=== PATIENT | female | born 1940 | race Caucasian/White ===

== ENCOUNTER 2018-06-18 09:04 | Inpatient (IN) | payer MEDICARE ==
[~2018-06-18] VITALS: Ht 167.6 cm; Wt 127.3 kg
[~2018-06-18 09:04] MED LIST: AMLO2.5T2 PO; CALC600T12 PO; FERR134T2 PO; INDA2.5T5 PO; LOSA25TA96 PO; MAGN400C PO; OTC POTASSIUM PO; PRAS25CA7 PO; PYRI50TA13 PO; THIA250T6 PO; TRAM50TA2 PO
[2018-06-18] MEDS ORDERED: normal saline 1000ML IV soln IVB ONE (09:10)
--- NOTE | 2018-06-18 09:19 | NUR ---
PT TO CT, GRANDDAUGHTER AT BEDSIDE AND STATES THAT PT HAD THE SAME SYMPTOMS LAST WEEK. PROVIDER NOTIFIED
[2018-06-18 09:33] LABS: BASOPHILS % (AUTO) 0.3 % (0-1); EOSINOPHILS # (AUTO) 0.1 X10'3 (0-0.9); EOSINOPHILS % (AUTO) 1.8 % (0-6); HEMATOCRIT 40.4 % (35.0-45.0); HEMOGLOBIN 13.3 g/dl (12.0-16.0); LYMPHOCYTES # (AUTO) 1.4 X10'3 (1.1-4.8); LYMPHOCYTES % (AUTO) 18.3 % (21-51); MEAN CORPUSCULAR HEMOGLOBIN 28.3 PG (27.0-31.0); MEAN CORPUSCULAR VOLUME 85.9 FL (78-98); MONOCYTES # (AUTO) 0.4 X10'3 (0-0.9); MONOCYTES % (AUTO) 5.5 % (2-12); NEUTROPHILS # (AUTO) 5.5 X10'3 (1.8-7.7); NEUTROPHILS % (AUTO) 74.1 % (42-75); PLATELET COUNT 156 X10'3 (140-440); RED CELL DISTRIBUTION WIDTH 13.9 % (11.5-14.5); WHITE BLOOD COUNT 7.4 X10'3 (4.5-11.0)
--- NOTE | 2018-06-18 09:35 | NUR ---
CALLED TO ER 3 FOR LEVEL 1 STROKE ALERT. PT IS NOW RESOLVED. NIHSS 0. SHE REPORTS SHE HAS HAD SEVERAL RECENT EPISODES OF RIGHT SIDE WEAKNESS AND NUMBNESS. TODAY AT 0800 HAD EPISODE LASTING 5-15MIN OF RIGHT SIDE WEAKNESS WITH SLURRED SPEECH SHE ALSO REPORTS THAT VISION DARKENED. DISCUSSED IMPORTANCE OF ADMISSION WITH WORKUP TO PREVENT FUTURE STROKE
[2018-06-18 09:43] LABS: ALANINE AMINOTRANSFERASE 18 U/L (12-78); ALBUMIN 3.5 G/DL (3.4-5.0); ALBUMIN/GLOBULIN RATIO 0.9 (1.1-1.5); ALKALINE PHOSPHATASE 92 IU/L (46-116); ANION GAP 3 (8-16); ASPARTATE AMINO TRANSFERASE 15 U/L (10-37); BILIRUBIN,TOTAL 0.4 MG/DL (0.1-1.0); BLOOD UREA NITROGEN 15 MG/DL (7-18); BUN/CREATININE RATIO 14.9 (6.6-38.0); CALCIUM 9.8 MG/DL (8.5-10.1); CHLORIDE 98 MMOL/L (99-107); CREATININE 1.01 MG/DL (0.40-0.90); GLUCOSE 114 MG/DL (70-104); POTASSIUM 4.7 MMOL/L (3.5-5.1); SODIUM 132 MMOL/L (135-145); TOTAL CARBON DIOXIDE 31.1 MMOL/L (24-32); TOTAL PROTEIN 7.3 G/DL (6.4-8.2); eGFR 53 ML/MIN
[2018-06-18 09:44] LABS: PARTIAL THROMBOPLASTIN TIME 28 SECONDS (22-32)
[2018-06-18 09:47] LABS: TROPONIN I 0.07 NG/ML (0.0-0.05)
[2018-06-18] MEDS ORDERED: enoxaparin 100mg/ml syringe SUBCUT ONE (10:05)
[2018-06-18] MEDS ORDERED: mag hydrox/Alum hydrox/simeth 30ml oral suspension PO PRN (11:00)
[2018-06-18] MEDS ORDERED: potassium Cl 40MEQ/NS 500ml 500 ML IV PRN ×2 (11:00)
[2018-06-18] MEDS ORDERED: normal saline 1000ml 1,000 ML IV ONE (11:00)
[2018-06-18] MEDS ORDERED: magnesium 4gm in 100ml NS 100 ML IV PRN (11:00)
[2018-06-18] MEDS ORDERED: magnesium Cl slow-release 64mg tablet PO PRN (11:00)
[2018-06-18] MEDS ORDERED: magnesium hydroxide 30ml (MOM) UD suspension PO PRN (11:00)
[2018-06-18] MEDS ORDERED: potassium Cl 20 mEq SR tablet PO PRN ×2 (11:00)
[2018-06-18] MEDS ORDERED: ondansetron/PF 4mg/2ml inj IV PRN (11:00)
[2018-06-18] MEDS ORDERED: acetaminophen 325mg tablet PO PRN ×2 (11:00)
[2018-06-18] MEDS ORDERED: magnesium 2GM in 50ml NS 50 ML IV PRN (11:00)
[2018-06-18 12:22] LABS: HEMOGLOBIN A1C 5.8 % (4.5-6.2)
[2018-06-18] MEDS ORDERED: LORazepam 2 mg/ml vial IV ONE (12:25)
[2018-06-18] MEDS ORDERED: CAPT25TA3 PO (12:43)
[2018-06-18] MEDS ORDERED: FURO20TA4 PO (12:44)
[2018-06-18] MEDS ORDERED: SPIR25TA5 PO (12:44)
[2018-06-18] MEDS ORDERED: ASPI-611 PO (12:45)
[2018-06-18] MEDS ORDERED: CARV-50 PO (12:46)
[2018-06-18] MEDS ORDERED: CYAN-19 PO (12:51)
[2018-06-18] MEDS ORDERED: MV-M1TAB32 PO (12:52)
[2018-06-18 13:00] LABS: CLARITY,URINE CLEAR (Clear); COLOR,URINE YELLOW (Yellow); GLUCOSE, URINE NEGATIVE (Neg); KETONES,URINE NEGATIVE (Neg); LEUKOCYTE ESTERASE ,URINE NEGATIVE (Neg); NITRITES, URINE NEGATIVE (Neg); OCCULT BLOOD,URINE NEGATIVE (Neg); PH,URINE 5.5 (4.8-8.0); PROTEIN,URINE NEGATIVE (Neg); UROBILINOGEN,URINE 0.2 E.U/dL (0.2-1.0)
[2018-06-18 13:11] LABS: UA COLLECTION TYPE CLN CATCH MIDSTREAM
[2018-06-18 19:30] VITALS: BP 144/55
[2018-06-18] MEDS: carVEDilol 12.5mg tablet PO SCH (19:49)
[2018-06-18] MEDS ORDERED: captoPRIL 25mg tablet PO SCH (20:00)
--- NOTE | 2018-06-18 20:20 | NUR ---
MD Juarez called and asked for a Stat Troponin to be drawn at this time and continue q6hrs time three. If the troponin trends up from the initial troponin orders need to be placed Lovenox 100mg BID SQ, if troponin trends down from the initial troponin to place orders for Lovenox 40mg Daily SQ.
[2018-06-18 22:00] VITALS: BP 131/52
[2018-06-19 03:06] LABS: BASOPHILS % (AUTO) 0.3 % (0-1); EOSINOPHILS # (AUTO) 0.1 X10'3 (0-0.9); EOSINOPHILS % (AUTO) 1.8 % (0-6); HEMATOCRIT 36.8 % (35.0-45.0); HEMOGLOBIN 12.3 g/dl (12.0-16.0); LYMPHOCYTES # (AUTO) 1.3 X10'3 (1.1-4.8); LYMPHOCYTES % (AUTO) 19.8 % (21-51); MEAN CORPUSCULAR HEMOGLOBIN 28.4 PG (27.0-31.0); MEAN CORPUSCULAR HGB CONC 33.3 g/dL (33.0-36.5); MEAN CORPUSCULAR VOLUME 85.3 FL (78-98); MEAN PLATELET VOLUME 9.6 FL (7.4-10.4); MONOCYTES # (AUTO) 0.6 X10'3 (0-0.9); MONOCYTES % (AUTO) 8.4 % (2-12); NEUTROPHILS # (AUTO) 4.7 X10'3 (1.8-7.7); NEUTROPHILS % (AUTO) 69.7 % (42-75); PLATELET COUNT 130 X10'3 (140-440); RED BLOOD COUNT 4.32 X10'6 (4.20-5.60); RED CELL DISTRIBUTION WIDTH 13.7 % (11.5-14.5); WHITE BLOOD COUNT 6.7 X10'3 (4.5-11.0)
[2018-06-19 03:14] LABS: ALBUMIN 3.1 G/DL (3.4-5.0); ANION GAP 5 (8-16); BLOOD UREA NITROGEN 14 MG/DL (7-18); BUN/CREATININE RATIO 15.7 (6.6-38.0); CALCIUM 9.8 MG/DL (8.5-10.1); CHLORIDE 100 MMOL/L (99-107); CHOL/HDL RATIO 3.6 (0.00-4.99); CHOLESTEROL 138 MG/DL (0-200); CREATININE 0.89 MG/DL (0.40-0.90); GLUCOSE 90 MG/DL (70-104); HDL CHOLESTEROL 38 MG/DL (35-60); LDL CHOLESTEROL 90 MG/DL (50-100); MAGNESIUM 1.7 MG/DL (1.5-2.4); POTASSIUM 4.3 MMOL/L (3.5-5.1); SODIUM 135 MMOL/L (135-145); TOTAL CARBON DIOXIDE 30.2 MMOL/L (24-32); TRIGLYCERIDES 72 MG/DL (20-135); TROPONIN I 0.05 NG/ML (0.0-0.05); eGFR 61 ML/MIN
--- NOTE | 2018-06-19 03:26 | NUR ---
2nd Troponin is trending down from .07 to .05. New order placed as directed by MD Juarez for Lovenox 40mg SQ daily.
[2018-06-19 06:00] VITALS: BP 133/54
--- NOTE | 2018-06-19 06:16 | NUR ---
Report given to Greg PARRA.
--- NOTE | 2018-06-19 07:03 | NUR ---
Patient in room ORTHO 4009. I have received report from Arcelia Isbell RN and had the opportunity to ask questions and assume patient care.
[2018-06-19] MEDS ORDERED: enoxaparin 40mg/0.4ml syringe SUBCUT SCH (08:00)
[2018-06-19] MEDS ORDERED: clopidogrel 75mg tablet PO SCH (08:00)
[2018-06-19] MEDS ORDERED: magnesium oxide 400mg tablet PO SCH (08:00)
[2018-06-19] MEDS ORDERED: lisinopril 10 MG tablet PO SCH (08:00)
[2018-06-19] MEDS ORDERED: K and/or MAG REPLACEMENT MC SCH (08:00)
[2018-06-19] MEDS ORDERED: AIRBORNE PO SCH (08:00)
[2018-06-19] MEDS ORDERED: furosemide 20MG tablet PO SCH (08:00)
[2018-06-19] MEDS ORDERED: spironolactone 25 MG tablet PO SCH (08:30)
[2018-06-19] MEDS: carVEDilol 12.5mg tablet PO SCH (08:46)
[2018-06-19 10:00] VITALS: BP 157/77
--- NOTE | 2018-06-19 11:51 | NUR ---
paged to let him know that the ultrasound of the carotids was completed
[2018-06-19] MEDS ORDERED: ATOR40TA PO (14:23)
[2018-06-19] MEDS ORDERED: CLOP75TA35 PO (14:23)
--- NOTE | 2018-06-19 14:27 | NUR ---
Problems reprioritized. Patient report given, questions answered & plan of care reviewed with Kathy PARRA.
== END 2018-06-19 15:40 | disposition home or self-care (01) | DRG 69 ==
LOC: ER 09:04 → ED HOLD 10:56 → ORTHO 4S 19:09
PROVIDERS: ADMIT Hospitalist; ATTEND Family Medicine
DX: G45.9 Transient cerebral ischemic attack, unspecified (principal); I21.A1 Myocardial infarction type 2; E78.00 Pure hypercholesterolemia, unspecified; I10 Essential (primary) hypertension; E78.5 Hyperlipidemia, unspecified; G89.29 Other chronic pain; M54.9 Dorsalgia, unspecified; R74.8 Abnormal levels of other serum enzymes; Z88.6 Allergy status to analgesic agent; Z88.2 Allergy status to sulfonamides; Z88.5 Allergy status to narcotic agent; Z88.8 Allergy status to other drugs, medicaments and biological substances; Z79.899 Other long term (current) drug therapy
CPT/HCPCS: 36415; 70450; 70544; 70551; 71045; 80048; 80053; 80061; 81003; 82948; 83036; 83735; 83880; 84484; 85025; 85610; 85730; 87070; 93005; 93306; 93880; 96360; 96361; 96372; 97116; 97162; 97530; 99285; G0378; J1650; J2060

== ENCOUNTER 2022-04-17 15:47 | Inpatient (IN) | payer MEDICARE ==
[~2022-04-17] VITALS: Ht 167.6 cm; Wt 143.0 kg
[~2022-04-17 15:47] MED LIST changes: -AMLO2.5T2 PO; -CALC600T12 PO; +CAPT25TA3 PO; +CARV-50 PO; +CLOP75TA34 PO; +CYAN100019 PO; -FERR134T2 PO; +FURO20TA4 PO; -INDA2.5T5 PO; -LOSA25TA96 PO; +MV-M1TAB32 PO; -OTC POTASSIUM PO; -PRAS25CA7 PO; +PYRI-3 PO; -PYRI50TA13 PO; -THIA250T6 PO; -TRAM50TA2 PO
[2022-04-17 16:44] LABS: BASOPHILS % (AUTO) 0.2 % (0-1); EOSINOPHILS # (AUTO) 0.1 X10'3 (0-0.9); EOSINOPHILS % (AUTO) 0.4 % (0-6); HEMATOCRIT 24.2 % (35.0-45.0); HEMOGLOBIN 7.9 g/dl (12.0-16.0); LYMPHOCYTES # (AUTO) 1.6 X10'3 (1.1-4.8); MEAN CORPUSCULAR HEMOGLOBIN 27.1 PG (27.0-31.0); MEAN CORPUSCULAR HGB CONC 32.6 g/dL (33.0-36.5); MEAN CORPUSCULAR VOLUME 83.1 FL (78-98); MEAN PLATELET VOLUME 10.3 FL (7.4-10.4); MONOCYTES % (AUTO) 7.2 % (2-12); NEUTROPHILS # (AUTO) 11.7 X10'3 (1.8-7.7); NEUTROPHILS % (AUTO) 81.2 % (42-75); PLATELET COUNT 190 X10'3 (140-440); RED BLOOD COUNT 2.91 X10'6 (4.20-5.60); RED CELL DISTRIBUTION WIDTH 15.1 % (11.5-14.5); WHITE BLOOD COUNT 14.4 X10'3 (4.5-11.0)
[2022-04-17 17:06] LABS: ALANINE AMINOTRANSFERASE 16 U/L (12-78); ALKALINE PHOSPHATASE 61 IU/L (46-116); ANION GAP 5 (8-16); ASPARTATE AMINO TRANSFERASE 15 U/L (10-37); BILIRUBIN,TOTAL 0.3 MG/DL (0.1-1.0); BLOOD UREA NITROGEN 99 MG/DL (7-18); CALCIUM 9.5 MG/DL (8.5-10.1); CHLORIDE 92 MMOL/L (99-107); GLUCOSE 137 MG/DL (70-104); POTASSIUM 4.1 MMOL/L (3.5-5.1); SODIUM 128 MMOL/L (135-145); TOTAL CARBON DIOXIDE 30.9 MMOL/L (24-32); TOTAL PROTEIN 6.1 G/DL (6.4-8.2); eGFR 44 ML/MIN
[2022-04-17] MEDS ORDERED: pantoprazole 40mg IV 80 MG in normal saline 100ml IV soln 100 ML IV STA (17:25)
[2022-04-17 17:36] LABS: BUN/CREATININE RATIO 84.6 (6.6-38.0); CREATININE 1.17 MG/DL (0.40-0.90)
[2022-04-17] MEDS ORDERED: POTA-206 PO (18:03)
[2022-04-17] MEDS ORDERED: TORS10TA17 PO (18:03)
[2022-04-17] MEDS ORDERED: ACET325T55 PO (18:03)
[2022-04-17] MEDS ORDERED: WARF-55 PO (18:03)
[2022-04-17] MEDS ORDERED: IRBE150T24 PO (18:03)
[2022-04-17] MEDS ORDERED: OFLO5DRO3 RIGHTEYE (18:03)
[2022-04-17] MEDS ORDERED: ATOR40TA72 PO (18:03)
[2022-04-17] MEDS ORDERED: BROM3DRO RIGHTEYE (18:03)
[2022-04-17] MEDS ORDERED: FLUT16SP26 BOTHNARES (18:03)
[2022-04-17] MEDS ORDERED: ZAR2.5T PO (18:03)
[2022-04-17] MEDS ORDERED: MELO-100 PO (18:03)
[2022-04-17] MEDS ORDERED: WARF2.5T82 PO (18:03)
[2022-04-17] MEDS ORDERED: LOTE5DRO9 RIGHTEYE (18:03)
[2022-04-17] MEDS ORDERED: acetaminophen 650mg rectal suppository RC PRN (18:40)
[2022-04-17] MEDS ORDERED: ondansetron/PF 4mg/2ml inj IV PRN (18:40)
[2022-04-17] MEDS ORDERED: magnesium Cl slow-release 64mg tablet PO PRN (18:40)
[2022-04-17] MEDS ORDERED: potassium Cl 40MEQ/1/2NS 520ml 520 ML IV PRN (18:40)
[2022-04-17] MEDS ORDERED: PERFLUTREN PROTEIN-A MICROSPHR (Optison) 0.22 MG/ML 3ML VIAL IV ONE (18:40)
[2022-04-17] MEDS ORDERED: magnesium 4gm in 100ml NS 100 ML IV PRN (18:40)
[2022-04-17] MEDS ORDERED: mag hydrox/Alum hydrox/simeth 30ml oral suspension PO PRN (18:40)
[2022-04-17] MEDS ORDERED: magnesium hydroxide 30ml (MOM) UD suspension PO PRN (18:40)
[2022-04-17] MEDS ORDERED: ondansetron 4mg rapidly disintigrating tab PO PRN (18:40)
[2022-04-17] MEDS ORDERED: potassium Cl 20 mEq SR tablet PO PRN ×2 (18:40)
[2022-04-17 18:53] LABS: HEMATOCRIT 22.8 % (35.0-45.0); HEMOGLOBIN 7.4 g/dl (12.0-16.0); MEAN CORPUSCULAR HEMOGLOBIN 26.9 PG (27.0-31.0); MEAN CORPUSCULAR HGB CONC 32.4 g/dL (33.0-36.5); MEAN CORPUSCULAR VOLUME 83.1 FL (78-98); MEAN PLATELET VOLUME 10.2 FL (7.4-10.4); PLATELET COUNT 179 X10'3 (140-440); RED BLOOD COUNT 2.74 X10'6 (4.20-5.60); RED CELL DISTRIBUTION WIDTH 15.1 % (11.5-14.5); WHITE BLOOD COUNT 15.4 X10'3 (4.5-11.0)
[2022-04-17] MEDS: pantoprazole 40MG/NS 100ML BAG 100 ML IV SCH ×2 (18:59→21:00)
[2022-04-17] MEDS: normal saline 1000ml 1,000 ML IV SCH (18:59)
[2022-04-17] MEDS ORDERED: phytonadione inj. 10 MG in normal saline 100ml IV soln 100 ML IV ONE (19:10)
[2022-04-17] MEDS ORDERED: CefTRIAXone/D5W-Rocephin 1gm 50 ML IV SCH (19:10)
[2022-04-17 19:34] VITALS: BP 106/46
[2022-04-17 19:41] LABS: HEMOGLOBIN A1C 6.3 % (4.5-6.2)
[2022-04-17 19:49] VITALS: BP 85/42
[2022-04-17] MEDS: K and/or MAG REPLACEMENT MC SCH (20:00)
[2022-04-17] MEDS: docusate sod 100mg capsule PO SCH (20:00)
--- NOTE | 2022-04-17 20:15 | NUR ---
Patient is NPO due to GI Bleed, is having back pain 09/18. Has only oral Tylenol ordered, per Dr. Roy give Morphine 2mg IV now for pain.
[2022-04-17] MEDS ORDERED: morphine 2 MG/ML inj. syringe IV ONE (20:20)
[2022-04-17] MEDS: LOTEPREDNOL ETABONATE OP SCH (20:32)
[2022-04-17] MEDS ORDERED: pantoprazole 40MG/NS 100ML BAG 100 ML IV SCH (21:00)
--- NOTE | 2022-04-17 21:05 | NUR ---
Patient still complaining of back pain, I feel its related to laying on the hard gurney. I just got her room assignment and will moving her to PCU and a hospital bed.
[2022-04-17 21:30] VITALS: BP 146/53
[2022-04-17 22:40] VITALS: BP 149/40
[2022-04-17] MEDS: acetaminophen 325mg tablet PO PRN (22:45)
[2022-04-17 22:55] VITALS: BP 138/50
[2022-04-17 23:59] VITALS: BP 136/47
[2022-04-18] VITALS (18 sets, daily range): BP systolic 101–151; BP diastolic 40–61
[2022-04-18] MEDS ORDERED: LORazepam 2 mg/ml vial IV ONE (00:55)
[2022-04-18] MEDS: pantoprazole 40MG/NS 100ML BAG 100 ML IV SCH ×5 (01:29→20:52)
[2022-04-18 03:00] LABS: BASOPHILS % (AUTO) 0.1 % (0-1); EOSINOPHILS # (AUTO) 0.1 X10'3 (0-0.9); EOSINOPHILS % (AUTO) 0.4 % (0-6); HEMATOCRIT 22.2 % (35.0-45.0); HEMOGLOBIN 7.3 g/dl (12.0-16.0); LYMPHOCYTES # (AUTO) 1.7 X10'3 (1.1-4.8); LYMPHOCYTES % (AUTO) 13.3 % (21-51); MEAN CORPUSCULAR HEMOGLOBIN 27.3 PG (27.0-31.0); MEAN CORPUSCULAR HGB CONC 32.9 g/dL (33.0-36.5); MEAN CORPUSCULAR VOLUME 83.1 FL (78-98); MEAN PLATELET VOLUME 9.7 FL (7.4-10.4); MONOCYTES # (AUTO) 0.9 X10'3 (0-0.9); MONOCYTES % (AUTO) 6.8 % (2-12); NEUTROPHILS # (AUTO) 10.4 X10'3 (1.8-7.7); NEUTROPHILS % (AUTO) 79.4 % (42-75); PLATELET COUNT 150 X10'3 (140-440); RED BLOOD COUNT 2.67 X10'6 (4.20-5.60); WHITE BLOOD COUNT 13.1 X10'3 (4.5-11.0)
[2022-04-18 03:15] LABS: ALANINE AMINOTRANSFERASE 19 U/L (12-78); ALBUMIN 2.8 G/DL (3.4-5.0); ALKALINE PHOSPHATASE 52 IU/L (46-116); ANION GAP 5 (8-16); ASPARTATE AMINO TRANSFERASE 17 U/L (10-37); BILIRUBIN,TOTAL 0.5 MG/DL (0.1-1.0); BLOOD UREA NITROGEN 94 MG/DL (7-18); CALCIUM 9.4 MG/DL (8.5-10.1); CHLORIDE 97 MMOL/L (99-107); CHOL/HDL RATIO 2.6 (0.00-4.99); CHOLESTEROL 96 MG/DL (0-200); CREATININE 1.27 MG/DL (0.40-0.90); GLUCOSE 116 MG/DL (70-104); HDL CHOLESTEROL 37 MG/DL (35-60); LDL CHOLESTEROL 46 MG/DL (50-100); PHOSPHORUS 4.2 MG/DL (2.3-4.5); POTASSIUM 4.3 MMOL/L (3.5-5.1); SODIUM 133 MMOL/L (135-145); TOTAL CARBON DIOXIDE 31.4 MMOL/L (24-32); TOTAL PROTEIN 5.5 G/DL (6.4-8.2); TRIGLYCERIDES 97 MG/DL (20-135); eGFR 40 ML/MIN
[2022-04-18] MEDS: acetaminophen 325mg tablet PO PRN ×4 (03:20→20:50)
[2022-04-18] MEDS: ofloxacin 0.33% 5ml ophthalmic drops RIGHTEYE SCH ×4 (06:00→20:52)
--- NOTE | 2022-04-18 06:30 | NUR ---
Patient in room PCU 3023. I have received report from Lamonte CRUZ and had the opportunity to ask questions and assume patient care.
[2022-04-18 06:41] LABS: HEMATOCRIT 22.2 % (35.0-45.0); HEMOGLOBIN 7.2 g/dl (12.0-16.0); MEAN CORPUSCULAR HEMOGLOBIN 26.9 PG (27.0-31.0); MEAN CORPUSCULAR HGB CONC 32.4 g/dL (33.0-36.5); MEAN CORPUSCULAR VOLUME 83.1 FL (78-98); MEAN PLATELET VOLUME 10.2 FL (7.4-10.4); PLATELET COUNT 137 X10'3 (140-440); RED BLOOD COUNT 2.67 X10'6 (4.20-5.60); WHITE BLOOD COUNT 11.6 X10'3 (4.5-11.0)
[2022-04-18] MEDS: losartan 50mg tablet PO SCH (08:00)
[2022-04-18] MEDS: metolazone 2.5mg tablet PO SCH (08:00)
[2022-04-18] MEDS: K and/or MAG REPLACEMENT MC SCH ×2 (08:00→20:00)
[2022-04-18] MEDS: atorvastatin 20mg tablet PO SCH (08:00)
[2022-04-18] MEDS: BROMFENAC SODIUM OP SCH (08:00)
[2022-04-18] MEDS: magnesium oxide 400mg tablet PO SCH (08:00)
[2022-04-18] MEDS: LOTEPREDNOL ETABONATE OP SCH ×4 (08:00→20:52)
[2022-04-18] MEDS: TORSEMIDE 10 MG PO SCH (08:00)
[2022-04-18] MEDS: docusate sod 100mg capsule PO SCH ×2 (08:00→20:52)
[2022-04-18] MEDS: fluticasone nasal spray 16GM bottle NS SCH ×2 (08:02→20:52)
[2022-04-18 10:08] LABS: HEMATOCRIT 23.2 % (35.0-45.0); HEMOGLOBIN 7.6 g/dl (12.0-16.0); MEAN CORPUSCULAR HEMOGLOBIN 27.4 PG (27.0-31.0); MEAN CORPUSCULAR HGB CONC 32.6 g/dL (33.0-36.5); MEAN CORPUSCULAR VOLUME 83.9 FL (78-98); MEAN PLATELET VOLUME 10.2 FL (7.4-10.4); PLATELET COUNT 153 X10'3 (140-440); RED BLOOD COUNT 2.77 X10'6 (4.20-5.60); WHITE BLOOD COUNT 11.3 X10'3 (4.5-11.0)
[2022-04-18 11:26] LABS: HEMOGLOBIN 7.7 g/dl (12.0-16.0); MEAN CORPUSCULAR HEMOGLOBIN 27.8 PG (27.0-31.0); MEAN CORPUSCULAR HGB CONC 33.3 g/dL (33.0-36.5); MEAN CORPUSCULAR VOLUME 83.4 FL (78-98); MEAN PLATELET VOLUME 10.5 FL (7.4-10.4); PLATELET COUNT 151 X10'3 (140-440); RED BLOOD COUNT 2.75 X10'6 (4.20-5.60); RED CELL DISTRIBUTION WIDTH 14.9 % (11.5-14.5); WHITE BLOOD COUNT 10.8 X10'3 (4.5-11.0)
--- NOTE | 2022-04-18 13:24 | NUR ---
Patient left unit with GI lab nurse for her EGD.
[2022-04-18] MEDS ORDERED: fentaNYL/PF 50MCG/1 ML 2ML syringe ONE (13:38)
[2022-04-18] MEDS ORDERED: MIDAZolam 1 MG/ML 5ML VIAL ONE (13:39)
[2022-04-18] MEDS ORDERED: LIDOcaine Viscous 15ml cup ONE (13:39)
[2022-04-18] MEDS: normal saline 1000ml 1,000 ML IV SCH (14:40)
--- NOTE | 2022-04-18 15:15 | NUR ---
Patient returned to floor from GI lab.
--- NOTE | 2022-04-18 15:56 | NUR ---
Patient getting a Echo now
--- NOTE | 2022-04-18 16:25 | NUR ---
Message: [id number] Idris Requesting pain medication stronger than Tylenol. Complaining 6/10 leg pain. Thank you Nenita CRUZ
--- NOTE | 2022-04-18 17:14 | NUR ---
AGREE WITH ELECTRIC WELL LOGGING OPERATOR AM ASSESSEMENT
--- NOTE | 2022-04-18 17:27 | NUR ---
Message: [id number] Idris is wondering if she can have food or water after her EGD? Thank you Nenita CRUZ Transaction number: [id number]
--- NOTE | 2022-04-18 17:28 | NUR ---
MD called and ordered CL diet and advance as tolerated
--- NOTE | 2022-04-18 18:28 | NUR ---
Problems reprioritized. Patient report given, questions answered & plan of care reviewed with Brittani PARRA.
--- NOTE | 2022-04-18 19:12 | NUR ---
Patient in room PCU 3023. I have received report from Nenita PARRA and had the opportunity to ask questions and assume patient care.
[2022-04-18 19:38] LABS: MEAN CORPUSCULAR HEMOGLOBIN 27.6 PG (27.0-31.0); MEAN CORPUSCULAR HGB CONC 32.8 g/dL (33.0-36.5); MEAN CORPUSCULAR VOLUME 84.3 FL (78-98); MEAN PLATELET VOLUME 9.9 FL (7.4-10.4); PLATELET COUNT 139 X10'3 (140-440); RED BLOOD COUNT 2.54 X10'6 (4.20-5.60); RED CELL DISTRIBUTION WIDTH 15.1 % (11.5-14.5); WHITE BLOOD COUNT 8.9 X10'3 (4.5-11.0)
[2022-04-18 19:47] LABS: HEMATOCRIT 21.5 % (35.0-45.0)
[2022-04-18] MEDS: CefTRIAXone/D5W-Rocephin 1gm 50 ML IV SCH (20:51)
--- NOTE | 2022-04-18 21:30 | NUR ---
PT IS C/O PAIN RADIATING TO THE BACK AND THIGH AND STATES THAT TYLENOL DID NOT HELP HER; SHE TAKES TYLENOL AND ALEVE TOGETHER AT HOME. CALLED DR. ROY AND GOT THE ORDER FOR LIDODERM PATCH AND NAPROXYN 500 MG TID
--- NOTE | 2022-04-18 22:50 | NUR ---
MD ORDERED THE BLOOD TRANSFUSION, BUT PT WAS VERY UNCOMFORTABLE WITH PAIN AND DID NOT WANT ANYTHING TO BE DONE AND JUST WANTED TO BE PAINFREE AND SLEEP. EXPLAINED THE PROS AND CONS OF REFUSING TRANSFUSION. WILL LET THE PT SLEEP FOR FEW HOURS AND TRY TO CONVINCE HER AGAIN.
[2022-04-18] MEDS ORDERED: naproxen 500mg tablet PO SCH (23:35)
[2022-04-19] VITALS (9 sets, daily range): BP systolic 115–175; BP diastolic 34–69
[2022-04-19] MEDS: LIDOcaine 5% patch TP SCH ×2 (00:30→07:53)
[2022-04-19] MEDS: pantoprazole 40MG/NS 100ML BAG 100 ML IV SCH ×5 (01:10→20:20)
[2022-04-19] MEDS: acetaminophen 325mg tablet PO PRN ×4 (03:57→20:19)
--- NOTE | 2022-04-19 04:00 | NUR ---
PT REFUSED TO GET THE BLOOD TRANSFUSION AND WISHES TO GO HOME AND BE COMFORTABLE. PT STATES "I WANT TO BE AT HOME AND WITH COMFORT." I EXPLAINED THE BENEFITS AND PURPOSE OF THE BLOOD TRANSFUSION, BUT PT IS DETERMINED NOT TO GET IT AND WANTS TO GO HOME.
[2022-04-19] MEDS: ofloxacin 0.33% 5ml ophthalmic drops RIGHTEYE SCH ×4 (06:00→20:18)
[2022-04-19 06:17] LABS: BASOPHILS % (AUTO) 0.1 % (0-1); EOSINOPHILS # (AUTO) 0.3 X10'3 (0-0.9); EOSINOPHILS % (AUTO) 2.7 % (0-6); LYMPHOCYTES # (AUTO) 1.2 X10'3 (1.1-4.8); MEAN CORPUSCULAR HEMOGLOBIN 28.1 PG (27.0-31.0); MEAN CORPUSCULAR HGB CONC 33.3 g/dL (33.0-36.5); MEAN CORPUSCULAR VOLUME 84.3 FL (78-98); MEAN PLATELET VOLUME 10.5 FL (7.4-10.4); MONOCYTES # (AUTO) 0.7 X10'3 (0-0.9); MONOCYTES % (AUTO) 7.2 % (2-12); NEUTROPHILS # (AUTO) 7.1 X10'3 (1.8-7.7); PLATELET COUNT 139 X10'3 (140-440); RED BLOOD COUNT 2.48 X10'6 (4.20-5.60); RED CELL DISTRIBUTION WIDTH 14.9 % (11.5-14.5); WHITE BLOOD COUNT 9.2 X10'3 (4.5-11.0)
--- NOTE | 2022-04-19 06:30 | NUR ---
Patient in room PCU 3023. I have received report from Brittani PARRA and had the opportunity to ask questions and assume patient care.
[2022-04-19 06:40] LABS: ALANINE AMINOTRANSFERASE 17 U/L (12-78); ALBUMIN 3.1 G/DL (3.4-5.0); ALBUMIN/GLOBULIN RATIO 1.1 (1.1-1.5); ALKALINE PHOSPHATASE 52 IU/L (46-116); ANION GAP 2 (8-16); ASPARTATE AMINO TRANSFERASE 25 U/L (10-37); BILIRUBIN,TOTAL 0.5 MG/DL (0.1-1.0); BLOOD UREA NITROGEN 50 MG/DL (7-18); BUN/CREATININE RATIO 50.5 (6.6-38.0); CHLORIDE 100 MMOL/L (99-107); CREATININE 0.99 MG/DL (0.40-0.90); GLUCOSE 123 MG/DL (70-104); PHOSPHORUS 3.2 MG/DL (2.3-4.5); POTASSIUM 3.9 MMOL/L (3.5-5.1); SODIUM 135 MMOL/L (135-145); TOTAL CARBON DIOXIDE 32.6 MMOL/L (24-32); TOTAL PROTEIN 5.9 G/DL (6.4-8.2); eGFR 53 ML/MIN
[2022-04-19 06:45] LABS: HEMATOCRIT 20.9 % (35.0-45.0)
--- NOTE | 2022-04-19 06:46 | NUR ---
Problems reprioritized. Patient report given, questions answered & plan of care reviewed with Nenita PARRA.
--- NOTE | 2022-04-19 06:53 | NUR ---
Called Dr. Roy and informed him of the critical lab value and that the ordered unit of blood was refused. No new orders at this time.
[2022-04-19] MEDS: metolazone 2.5mg tablet PO SCH (07:30)
[2022-04-19] MEDS: docusate sod 100mg capsule PO SCH ×2 (07:30→20:19)
[2022-04-19] MEDS: magnesium oxide 400mg tablet PO SCH (07:31)
[2022-04-19] MEDS: losartan 50mg tablet PO SCH (07:31)
[2022-04-19] MEDS: atorvastatin 20mg tablet PO SCH (07:31)
[2022-04-19] MEDS: fluticasone nasal spray 16GM bottle NS SCH ×2 (07:41→20:18)
[2022-04-19] MEDS: TORSEMIDE 10 MG PO SCH (07:44)
[2022-04-19] MEDS: LOTEPREDNOL ETABONATE OP SCH ×4 (07:44→20:20)
[2022-04-19] MEDS: K and/or MAG REPLACEMENT MC SCH ×2 (07:45→19:36)
[2022-04-19] MEDS: BROMFENAC SODIUM OP SCH (07:45)
--- NOTE | 2022-04-19 10:37 | NUR ---
PAGER ID: [phone] MESSAGE: [phone] Idris Patient would like to get blood now. Spoke with friend and decided she doesn't want comfort care. Thank you Nenita CRUZ
[2022-04-19] MEDS: normal saline 1000ml 1,000 ML IV SCH (10:40)
--- NOTE | 2022-04-19 10:42 | NUR ---
Spoke with patient's sister and gave her a update on her condition.
--- NOTE | 2022-04-19 14:41 | NUR ---
PAGER ID: [phone] MESSAGE: [phone] Idris Patient is requesting scd's for her leg spasms. Thank you Nenita CRUZ
--- NOTE | 2022-04-19 15:05 | NUR ---
Blood transfusion ended. Hemogram scheduled per protocol.
--- NOTE | 2022-04-19 18:00 | NUR ---
Patient in room PCU 3023. I have received report from Nenita PARRA and had the opportunity to ask questions and assume patient care.
--- NOTE | 2022-04-19 18:26 | NUR ---
Problems reprioritized. Patient report given, questions answered & plan of care reviewed with Brittani PARRA.
[2022-04-19 18:49] LABS: HEMATOCRIT 23.1 % (35.0-45.0); HEMOGLOBIN 7.6 g/dl (12.0-16.0); MEAN CORPUSCULAR HGB CONC 33.1 g/dL (33.0-36.5); MEAN CORPUSCULAR VOLUME 84.4 FL (78-98); MEAN PLATELET VOLUME 9.6 FL (7.4-10.4); PLATELET COUNT 139 X10'3 (140-440); RED BLOOD COUNT 2.73 X10'6 (4.20-5.60); RED CELL DISTRIBUTION WIDTH 14.9 % (11.5-14.5)
[2022-04-19] MEDS: CefTRIAXone/D5W-Rocephin 1gm 50 ML IV SCH (20:20)
--- NOTE | 2022-04-19 21:26 | NUR ---
PAGED DR. THOMAS FOR OTIS RUSSELL--PT IS HAVING CONSTANT MUSCLE CRAMPS AND WOULD LIKE TO HAVE SOME MEDICATION; SHE IS ALLERGIC TO CODEINE, SILFA, ASPIRIN, CELECOX. THANK YOU.
[2022-04-19] MEDS: cyclobenzaprine 10mg tablet PO ONE (22:40)
[2022-04-20] MEDS: cyclobenzaprine 10mg tablet PO ONE (00:29)
[2022-04-20] MEDS: pantoprazole 40MG/NS 100ML BAG 100 ML IV SCH ×3 (01:55→11:00)
[2022-04-20 02:00] VITALS: BP 125/68
[2022-04-20] MEDS: acetaminophen 325mg tablet PO PRN ×3 (04:52→22:13)
[2022-04-20] MEDS ORDERED: cyclobenzaprine 10mg tablet PO ONE ×2 (05:30)
[2022-04-20 05:55] LABS: BASOPHILS % (AUTO) 0.2 % (0-1); EOSINOPHILS # (AUTO) 0.3 X10'3 (0-0.9); LYMPHOCYTES # (AUTO) 1.2 X10'3 (1.1-4.8); MEAN CORPUSCULAR HEMOGLOBIN 28.3 PG (27.0-31.0); MEAN CORPUSCULAR HGB CONC 33.2 g/dL (33.0-36.5); MEAN CORPUSCULAR VOLUME 85.3 FL (78-98); MEAN PLATELET VOLUME 9.8 FL (7.4-10.4); MONOCYTES # (AUTO) 0.7 X10'3 (0-0.9); MONOCYTES % (AUTO) 7.2 % (2-12); NEUTROPHILS # (AUTO) 7.2 X10'3 (1.8-7.7); NEUTROPHILS % (AUTO) 76.6 % (42-75); PLATELET COUNT 150 X10'3 (140-440); RED BLOOD COUNT 2.82 X10'6 (4.20-5.60); RED CELL DISTRIBUTION WIDTH 15.2 % (11.5-14.5); WHITE BLOOD COUNT 9.4 X10'3 (4.5-11.0)
[2022-04-20 06:09] LABS: ALANINE AMINOTRANSFERASE 24 U/L (12-78); ALBUMIN 3.2 G/DL (3.4-5.0); ALKALINE PHOSPHATASE 66 IU/L (46-116); ANION GAP 2 (8-16); ASPARTATE AMINO TRANSFERASE 29 U/L (10-37); BILIRUBIN,TOTAL 0.6 MG/DL (0.1-1.0); BLOOD UREA NITROGEN 30 MG/DL (7-18); BUN/CREATININE RATIO 30.3 (6.6-38.0); CHLORIDE 99 MMOL/L (99-107); CREATININE 0.99 MG/DL (0.40-0.90); GLUCOSE 134 MG/DL (70-104); MAGNESIUM 1.9 MG/DL (1.5-2.4); PHOSPHORUS 2.9 MG/DL (2.3-4.5); POTASSIUM 4.3 MMOL/L (3.5-5.1); SODIUM 134 MMOL/L (135-145); TOTAL CARBON DIOXIDE 33.3 MMOL/L (24-32); TOTAL PROTEIN 6.3 G/DL (6.4-8.2); eGFR 53 ML/MIN
--- NOTE | 2022-04-20 06:52 | NUR ---
Problems reprioritized. Patient report given, questions answered & plan of care reviewed with Tra RN.
[2022-04-20 07:00] VITALS: BP 145/56
[2022-04-20] MEDS: atorvastatin 20mg tablet PO SCH (07:47)
[2022-04-20] MEDS: metolazone 2.5mg tablet PO SCH (07:48)
[2022-04-20] MEDS: docusate sod 100mg capsule PO SCH ×2 (07:48→19:40)
[2022-04-20] MEDS: magnesium oxide 400mg tablet PO SCH (07:48)
[2022-04-20] MEDS: losartan 50mg tablet PO SCH (07:48)
[2022-04-20] MEDS: ofloxacin 0.33% 5ml ophthalmic drops RIGHTEYE SCH ×5 (07:49→22:13)
[2022-04-20] MEDS: fluticasone nasal spray 16GM bottle NS SCH ×2 (07:49→19:41)
[2022-04-20] MEDS: normal saline 1000ml 1,000 ML IV SCH (07:50)
[2022-04-20] MEDS: LIDOcaine 5% patch TP SCH (07:52)
[2022-04-20] MEDS: BROMFENAC SODIUM OP SCH (07:54)
[2022-04-20] MEDS: TORSEMIDE 10 MG PO SCH (08:00)
[2022-04-20] MEDS: LOTEPREDNOL ETABONATE OP SCH ×4 (08:00→21:00)
[2022-04-20] MEDS: K and/or MAG REPLACEMENT MC SCH ×2 (08:00→20:00)
[2022-04-20] MEDS ORDERED: furosemide 40mg/4ml inj IV ONE (08:25)
[2022-04-20 11:00] VITALS: BP 131/46
[2022-04-20 15:00] VITALS: BP 146/52
[2022-04-20 18:30] VITALS: BP 111/89
--- NOTE | 2022-04-20 18:55 | NUR ---
[phone] MESSAGE: rudi [phone]. pt darshana chavez [id number] req pain medication. tylenol ineffective. may we restart 1/2 dose of flexaril (5mg q6 prn) o pt takes zarolxolyn and meloxicam at home and has been on hold for gi bleed
[2022-04-20] MEDS: traMADol 50MG tablet PO PRN (19:40)
[2022-04-20] MEDS: pantoprazole 40mg Tablet.DR PO SCH (19:40)
[2022-04-20] MEDS: CefTRIAXone/D5W-Rocephin 1gm 50 ML IV SCH (19:41)
[2022-04-20 22:10] VITALS: BP 99/39
--- NOTE | 2022-04-20 22:58 | NUR ---
pt required frequent massaging of her right hip where pain is located. hip muscle seems to be spasm-knotting and causing pain. ultram slightly effective - gave tylenol to assist with pain control. pt stated "only one more night then I can go home and take what really helps". educated pt those medications may have caused her bleeding in her stomach - more education needed.
[2022-04-21] MEDS: traMADol 50MG tablet PO PRN (03:21)
[2022-04-21 06:00] VITALS: BP 143/53
[2022-04-21 06:22] LABS: BASOPHILS % (AUTO) 0.3 % (0-1); EOSINOPHILS # (AUTO) 0.2 X10'3 (0-0.9); EOSINOPHILS % (AUTO) 2.3 % (0-6); HEMATOCRIT 22.7 % (35.0-45.0); HEMOGLOBIN 7.6 g/dl (12.0-16.0); LYMPHOCYTES % (AUTO) 9.6 % (21-51); MEAN CORPUSCULAR HEMOGLOBIN 28.3 PG (27.0-31.0); MEAN CORPUSCULAR HGB CONC 33.6 g/dL (33.0-36.5); MEAN CORPUSCULAR VOLUME 84.3 FL (78-98); MEAN PLATELET VOLUME 9.6 FL (7.4-10.4); MONOCYTES # (AUTO) 0.7 X10'3 (0-0.9); MONOCYTES % (AUTO) 6.8 % (2-12); NEUTROPHILS # (AUTO) 8.3 X10'3 (1.8-7.7); PLATELET COUNT 145 X10'3 (140-440); RED BLOOD COUNT 2.69 X10'6 (4.20-5.60); RED CELL DISTRIBUTION WIDTH 14.8 % (11.5-14.5); WHITE BLOOD COUNT 10.2 X10'3 (4.5-11.0)
[2022-04-21 06:41] LABS: ALANINE AMINOTRANSFERASE 24 U/L (12-78); ALBUMIN 2.9 G/DL (3.4-5.0); ALKALINE PHOSPHATASE 66 IU/L (46-116); ANION GAP 1 (8-16); ASPARTATE AMINO TRANSFERASE 29 U/L (10-37); BILIRUBIN,TOTAL 0.5 MG/DL (0.1-1.0); BLOOD UREA NITROGEN 22 MG/DL (7-18); BUN/CREATININE RATIO 24.7 (6.6-38.0); CHLORIDE 94 MMOL/L (99-107); CREATININE 0.89 MG/DL (0.40-0.90); GLUCOSE 109 MG/DL (70-104); MAGNESIUM 1.8 MG/DL (1.5-2.4); PHOSPHORUS 2.8 MG/DL (2.3-4.5); POTASSIUM 3.6 MMOL/L (3.5-5.1); SODIUM 129 MMOL/L (135-145); TOTAL CARBON DIOXIDE 34.1 MMOL/L (24-32); TOTAL PROTEIN 5.9 G/DL (6.4-8.2); eGFR 60 ML/MIN
[2022-04-21] MEDS: acetaminophen 325mg tablet PO PRN (06:52)
[2022-04-21] MEDS: metolazone 2.5mg tablet PO SCH (07:03)
[2022-04-21] MEDS: docusate sod 100mg capsule PO SCH (07:03)
[2022-04-21] MEDS: atorvastatin 20mg tablet PO SCH (07:04)
[2022-04-21] MEDS: pantoprazole 40mg Tablet.DR PO SCH (07:04)
[2022-04-21] MEDS: magnesium oxide 400mg tablet PO SCH (07:04)
[2022-04-21] MEDS: ofloxacin 0.33% 5ml ophthalmic drops RIGHTEYE SCH ×2 (07:05→11:11)
[2022-04-21] MEDS: fluticasone nasal spray 16GM bottle NS SCH (07:05)
[2022-04-21] MEDS: LIDOcaine 5% patch TP SCH (07:06)
[2022-04-21] MEDS: losartan 50mg tablet PO SCH (07:06)
[2022-04-21] MEDS: BROMFENAC SODIUM OP SCH (07:08)
[2022-04-21] MEDS: LOTEPREDNOL ETABONATE OP SCH (07:08)
[2022-04-21] MEDS: TORSEMIDE 10 MG PO SCH (07:09)
[2022-04-21] MEDS: K and/or MAG REPLACEMENT MC SCH (07:18)
[2022-04-21 10:30] VITALS: BP 132/51
[2022-04-21] MEDS ORDERED: HALLS - SOOTHE MENTHOL 1.8 MG cough drop LOZENGE MM PRN (11:15)
--- NOTE | 2022-04-21 12:18 | NUR ---
attempted to call [facility] and give report, no one available to take report. will attempt again
--- NOTE | 2022-04-21 12:32 | NUR ---
Called and gave report to [facility], spoke with Patti PARRA.
--- NOTE | 2022-04-21 13:07 | NUR ---
patient transferred in stable condition
== END 2022-04-21 13:04 | DRG 377 ==
LOC: ER 15:48 → ED HOLD 18:42 → EDBEDREQ 20:45 → PCU 3S 21:30
PROVIDERS: ADMIT Family Medicine; ATTEND Family Medicine
PROC: 30233N1 Transfusion of Nonautologous Red Blood Cells into Peripheral Vein, Percutaneous Approach (ICD-10-PCS; 2022-04-17)
PROC: 30233K1 Transfusion of Nonautologous Frozen Plasma into Peripheral Vein, Percutaneous Approach (ICD-10-PCS; 2022-04-17)
PROC: 0DB78ZX Excision of Stomach, Pylorus, Via Natural or Artificial Opening Endoscopic, Diagnostic (ICD-10-PCS; principal; 2022-04-18)
DX: K25.4 Chronic or unspecified gastric ulcer with hemorrhage (principal); G92.8 Other toxic encephalopathy; N17.0 Acute kidney failure with tubular necrosis; D68.9 Coagulation defect, unspecified; Z68.43 Body mass index [BMI] 50.0-59.9, adult; D62 Acute posthemorrhagic anemia; D68.69 Other thrombophilia; K29.71 Gastritis, unspecified, with bleeding; Z66 Do not resuscitate; E78.00 Pure hypercholesterolemia, unspecified; G89.4 Chronic pain syndrome; M54.9 Dorsalgia, unspecified; E66.01 Morbid (severe) obesity due to excess calories; R00.0 Tachycardia, unspecified; I10 Essential (primary) hypertension; J44.9 Chronic obstructive pulmonary disease, unspecified; Z79.01 Long term (current) use of anticoagulants; Z86.73 Personal history of transient ischemic attack (TIA), and cerebral infarction without residual deficits; Z87.891 Personal history of nicotine dependence; Z88.5 Allergy status to narcotic agent; Z88.2 Allergy status to sulfonamides; Z99.81 Dependence on supplemental oxygen; Z90.49 Acquired absence of other specified parts of digestive tract; T48.1X5A Adverse effect of skeletal muscle relaxants [neuromuscular blocking agents], initial encounter; Y92.230 Patient room in hospital as the place of occurrence of the external cause; D72.828 Other elevated white blood cell count
CPT/HCPCS: 36415; 36430; 43239; 71045; 80053; 80061; 82948; 83036; 83735; 83880; 84100; 84484; 85025; 85027; 85610; 86870; 86880; 86885; 86900; 86901; 86922; 87081; 88305; 93005; 93306; 97110; 97161; 97530; 99152; 99285; A4620; C9113; G0378; J0696; J1940; J2060; J2250; J2270; J3010; J3430; J3490; J7030; J7040; P9016; P9059

== ENCOUNTER 2024-01-13 14:11 | Inpatient (IN) | payer MEDICARE ==
[~2024-01-13] VITALS: Ht 165.1 cm; Wt 152.3 kg
[~2024-01-13 14:11] MED LIST changes: +ACET325T55 PO; +ATOR40TA72 PO; +BROM3DRO RIGHTEYE; -CAPT25TA3 PO; -CARV-50 PO; -CLOP75TA34 PO; -CYAN100019 PO; +FLUT16SP26 BOTHNARES; -FURO20TA4 PO; +IRBE150T34 PO; +LOTE5DRO9 RIGHTEYE; +MELO-100 PO; -MV-M1TAB32 PO; +OFLO5DRO6 RIGHTEYE; +POTA-206 PO; -PYRI-3 PO; +TORS10TA17 PO; +WARF-55 PO; +WARF2.5T82 PO; +ZAR2.5T PO
[2024-01-13] MEDS: ondansetron/PF 4mg/2ml inj IV ONE (14:54)
[2024-01-13] MEDS: morphine 4 MG/ML inj SYRINge IV ONE (14:54)
[2024-01-13 15:12] LABS: BILIRUBIN,URINE NEGATIVE (Neg); CLARITY,URINE CLEAR (Clear); COLOR,URINE STRAW (Yellow); GLUCOSE, URINE NEGATIVE (Neg); KETONES,URINE TRACE mg/dl (Neg); LEUKOCYTE ESTERASE ,URINE NEGATIVE (Neg); NITRITES, URINE NEGATIVE (Neg); OCCULT BLOOD,URINE TRACE-INTACT (Neg); PROTEIN,URINE NEGATIVE (Neg); UROBILINOGEN,URINE 0.2 E.U/dL (0.2-1.0)
[2024-01-13 15:13] LABS: BASOPHILS % (AUTO) 0.1 % (0-1); EOSINOPHILS # (AUTO) 0.1 X10'3 (0-0.9); EOSINOPHILS % (AUTO) 0.6 % (0-6); HEMATOCRIT 35.2 % (35.0-45.0); HEMOGLOBIN 11.3 g/dl (12.0-16.0); LYMPHOCYTES # (AUTO) 0.7 X10'3 (1.1-4.8); MEAN CORPUSCULAR HEMOGLOBIN 27.8 PG (27.0-31.0); MEAN CORPUSCULAR HGB CONC 32.2 g/dL (33.0-36.5); MEAN CORPUSCULAR VOLUME 86.3 FL (78-98); MEAN PLATELET VOLUME 9.3 FL (7.4-10.4); MONOCYTES # (AUTO) 0.6 X10'3 (0-0.9); MONOCYTES % (AUTO) 6.6 % (2-12); NEUTROPHILS # (AUTO) 8.4 X10'3 (1.8-7.7); NEUTROPHILS % (AUTO) 85.7 % (42-75); PLATELET COUNT 156 X10'3 (140-440); RED BLOOD COUNT 4.08 X10'6 (4.20-5.60); RED CELL DISTRIBUTION WIDTH 15.1 % (11.5-14.5); WHITE BLOOD COUNT 9.8 X10'3 (4.5-11.0)
[2024-01-13 15:15] LABS: UA COLLECTION TYPE CLN CATCH MIDSTREAM
[2024-01-13 15:23] LABS: ALANINE AMINOTRANSFERASE 20 U/L (12-78); ALBUMIN 3.4 G/DL (3.4-5.0); ALBUMIN/GLOBULIN RATIO 0.9 (1.1-1.5); ALKALINE PHOSPHATASE 102 IU/L (46-116); ANION GAP 0 (8-16); ASPARTATE AMINO TRANSFERASE 16 U/L (10-37); BILIRUBIN,TOTAL 0.8 MG/DL (0.1-1.0); BLOOD UREA NITROGEN 9 MG/DL (7-18); BUN/CREATININE RATIO 10.6 (10.0-20.0); CALCIUM 9.7 MG/DL (8.5-10.1); CHLORIDE 93 MMOL/L (99-107); CREATININE 0.85 MG/DL (0.40-0.90); GLUCOSE 119 MG/DL (70-104); POTASSIUM 4.6 MMOL/L (3.5-5.1); SODIUM 132 MMOL/L (135-145); TOTAL CARBON DIOXIDE 38.8 MMOL/L (24-32); TOTAL PROTEIN 7.3 G/DL (6.4-8.2); eCRCL 44 ML/MIN; eGFR 64 ML/MIN
[2024-01-13 15:24] LABS: APTT 26 SECONDS (22-32); D-DIMER 0.97 MG/L FEU (0-0.50); PROTHROMBIN TIME 10.4 SECONDS (9.0-12.0)
[2024-01-13 15:26] LABS: SQUAMOUS EPITHELIAL CELL,UR FEW /LPF (FEW)
[2024-01-13 15:29] LABS: BACTERIA,URINE FEW /HPF (Neg); RBC,URINE 0-2 /HPF (0-2); WBC,URINE 0-4 /HPF (0-4)
[2024-01-13 15:32] LABS: LIPASE 40 U/L (16-77); MAGNESIUM 2.3 MG/DL (1.5-2.4); PRO BRAIN NATRIURETIC PEPTIDE 1303 PG/ML (0-450)
[2024-01-13] MEDS: CefTRIAXone 2gm/D5W 50ml BAG 50 ML IV ONE (15:41)
[2024-01-13] MEDS ORDERED: magnesium sulf-water 4G/100mL 100 ML IV PRN (17:15)
[2024-01-13] MEDS ORDERED: bisacodyl 10mg suppository rectal RC PRN (17:15)
[2024-01-13] MEDS ORDERED: potassium Cl 40MEQ/1/2NS 520ml 520 ML IV PRN (17:15)
[2024-01-13] MEDS ORDERED: ondansetron/PF 4mg/2ml inj IV PRN (17:15)
[2024-01-13] MEDS ORDERED: mag hydrox/Alum hydrox/simeth 30ml oral suspension PO PRN (17:15)
[2024-01-13] MEDS ORDERED: magnesium sulf-water 2g/50mL 50 ML IV PRN (17:15)
[2024-01-13] MEDS ORDERED: potassium Cl 20 mEq SR tablet PO PRN ×2 (17:15)
[2024-01-13] MEDS ORDERED: acetaminophen 325mg tablet PO PRN (17:15)
[2024-01-13] MEDS: PERFLUTREN PROTEIN-A MICROSPHR (Optison) 0.22 MG/ML 3ML VIAL IV ONE (17:30)
[2024-01-13 17:57] LABS: ABG BASE EXCESS 7.6 mmol/L (-2.0-3.0); ABG HCO3 38.7 mmol/L (21.0-28.0); ABG OXYGEN SATURATION 98.8 % (94.0-98.0); ABG PCO2 (T) 98.9 mmHg (32.0-45.0); ABG PH (T) 7.208 (7.350-7.450); ABG PO2 (T) 135.4 mmHg (83.0-108.0); ALLEN'S TEST POSITIVE; FCOHb 0.7 % (0.5-1.5); FHHb 1.2 % (0.0-5.0); FLOW 3 L/min; FMetHb 0.3 % (0.0-1.5); FO2Hb 97.8 % (94.0-98.0); MODE NC; PATIENT TEMPERATURE 36.5; TOTAL HEMOGLOBIN 11.5 G/dl (12.0-16.0)
[2024-01-13 18:10] VITALS: PULSE 84; RESP 32; O2SAT 91
[2024-01-13] MEDS: K and/or MAG REPLACEMENT MC SCH (19:09)
[2024-01-13] MEDS: docusate sod 100mg capsule PO SCH (19:36)
[2024-01-13] MEDS: methylPREDNISolone sod succ 125mg/2ml vial IV SCH (19:36)
[2024-01-13 19:47] LABS: ABG BASE EXCESS 5.2 mmol/L (-2.0-3.0); ABG HCO3 35.7 mmol/L (21.0-28.0); ABG OXYGEN SATURATION 97.2 % (94.0-98.0); ABG PCO2 (T) 90.8 mmHg (32.0-45.0); ABG PO2 (T) 104.4 mmHg (83.0-108.0); ALLEN'S TEST POSITIVE; FCOHb 0.2 % (0.5-1.5); FHHb 2.8 % (0.0-5.0); FMetHb 0.3 % (0.0-1.5); FO2Hb 96.7 % (94.0-98.0); MODE BiPAP; PATIENT TEMPERATURE 36.5; TOTAL HEMOGLOBIN 11.4 G/dl (12.0-16.0)
[2024-01-13 19:58] VITALS: PULSE 72; RESP 22; O2SAT 94
[2024-01-13] MEDS: budesonide 0.5mg/2ml UD nebule IH SCH (19:58)
[2024-01-13] MEDS: ipratropium/albuterol 3ml nebule NEB PRN (19:58)
[2024-01-13 20:00] VITALS: PULSE 72; RESP 22; O2SAT 96
[2024-01-13 20:08] VITALS: PULSE 68; RESP 24
[2024-01-13] MEDS: methylPREDNISolone sod succ 125mg/2ml vial IV ONE (20:26)
[2024-01-13] MEDS: enoxaparin 40mg/0.4ml syringe SQ SCH (20:27)
[2024-01-13 22:24] LABS: ABG BASE EXCESS 5.6 mmol/L (-2.0-3.0); ABG HCO3 35.4 mmol/L (21.0-28.0); ABG OXYGEN SATURATION 97.8 % (94.0-98.0); ABG PH (T) 7.246 (7.350-7.450); ABG PO2 (T) 108.8 mmHg (83.0-108.0); ALLEN'S TEST POSITIVE; FCOHb 0.4 % (0.5-1.5); FHHb 2.2 % (0.0-5.0); FMetHb 0.3 % (0.0-1.5); FO2Hb 97.1 % (94.0-98.0); MODE BiPAP; PATIENT TEMPERATURE 36.5; TOTAL HEMOGLOBIN 11.6 G/dl (12.0-16.0)
[2024-01-13 22:40] VITALS: BP 173/56; PULSE 83; RESP 18; TEMP 98.3; O2SAT 96
[2024-01-13 22:41] VITALS: PULSE 83; RESP 22; O2SAT 98
[2024-01-13] MEDS: ROPINIRole 0.25mg tablet PO ONE (23:31)
[2024-01-14] VITALS (15 sets, daily range): BP systolic 139–187; BP diastolic 63–82; PULSE 80–104; RESP 18–36; TEMP 97.1–98.3; O2SAT 90–97
[2024-01-14] MEDS ORDERED: warfarin 5mg tablet PO SCH (02:00)
[2024-01-14] MEDS: losartan 50mg tablet PO ONE (02:49)
[2024-01-14 06:50] LABS: BASOPHILS % (AUTO) 0 % (0-1); EOSINOPHILS % (AUTO) 0 % (0-6); HEMATOCRIT 33.6 % (35.0-45.0); HEMOGLOBIN 10.9 g/dl (12.0-16.0); LYMPHOCYTES # (AUTO) 0.4 X10'3 (1.1-4.8); LYMPHOCYTES % (AUTO) 6.8 % (21-51); MEAN CORPUSCULAR HGB CONC 32.3 g/dL (33.0-36.5); MEAN CORPUSCULAR VOLUME 86.5 FL (78-98); MEAN PLATELET VOLUME 9.8 FL (7.4-10.4); MONOCYTES % (AUTO) 0.8 % (2-12); NEUTROPHILS # (AUTO) 5.2 X10'3 (1.8-7.7); NEUTROPHILS % (AUTO) 92.4 % (42-75); PLATELET COUNT 160 X10'3 (140-440); RED BLOOD COUNT 3.89 X10'6 (4.20-5.60); RED CELL DISTRIBUTION WIDTH 14.7 % (11.5-14.5); WHITE BLOOD COUNT 5.6 X10'3 (4.5-11.0)
[2024-01-14 07:00] LABS: ALANINE AMINOTRANSFERASE 15 U/L (12-78); ALBUMIN 3.2 G/DL (3.4-5.0); ALBUMIN/GLOBULIN RATIO 0.8 (1.1-1.5); ALKALINE PHOSPHATASE 93 IU/L (46-116); ANION GAP 1 (8-16); ASPARTATE AMINO TRANSFERASE 17 U/L (10-37); BILIRUBIN,TOTAL 0.5 MG/DL (0.1-1.0); BLOOD UREA NITROGEN 10 MG/DL (7-18); BUN/CREATININE RATIO 12.7 (10.0-20.0); CALCIUM 9.2 MG/DL (8.5-10.1); CHLORIDE 91 MMOL/L (99-107); CREATININE 0.79 MG/DL (0.40-0.90); GLUCOSE 156 MG/DL (70-104); MAGNESIUM 2.2 MG/DL (1.5-2.4); POTASSIUM 4.9 MMOL/L (3.5-5.1); PROTHROMBIN TIME 10.5 SECONDS (9.0-12.0); SODIUM 131 MMOL/L (135-145); TOTAL CARBON DIOXIDE 39.4 MMOL/L (24-32); TOTAL PROTEIN 7.2 G/DL (6.4-8.2); eCRCL 47 ML/MIN; eGFR 69 ML/MIN
[2024-01-14] MEDS: TORSEMIDE 10 MG PO SCH (08:00)
[2024-01-14] MEDS ORDERED: azithromycin/NS 500mg/250ml 250 ML IV SCH (08:00)
[2024-01-14] MEDS ORDERED: warfarin 2.5mg tablet PO SCH (08:00)
[2024-01-14] MEDS: CefTRIAXone/D5W-Rocephin 1gm 50 ML IV SCH (08:47)
[2024-01-14] MEDS: magnesium oxide 400mg tablet PO SCH (08:48)
[2024-01-14] MEDS: atorvastatin 20mg tablet PO SCH (08:49)
[2024-01-14] MEDS: azithromycin 250mg tablet PO SCH (08:50)
[2024-01-14] MEDS: metolazone 2.5mg tablet PO SCH (08:52)
[2024-01-14] MEDS: losartan 50mg tablet PO SCH (08:56)
[2024-01-14] MEDS ORDERED: MELOXICAM 7.5 MG TABLET PO PRN (12:25)
[2024-01-14] MEDS: LOTEPREDNOL ETABONATE EYE RIGHTEYE SCH (13:00)
[2024-01-14] MEDS: oxyCODONE/APAP 10/325mg tablet PO PRN (13:08)
[2024-01-14] MEDS: pneumococcal 23-VAL P-sac vacc 25 mcg/0.5ml vial IMVAC ONE (14:20)
[2024-01-14] MEDS: ofloxacin 0.33% 5ml ophthalmic drops RIGHTEYE SCH (16:00)
[2024-01-14] MEDS: enoxaparin 40mg/0.4ml syringe SUBCUT SCH (19:28)
[2024-01-14] MEDS: albuterol 2.5 MG/3 ML nebule NEB PRN (19:50)
[2024-01-14] MEDS: fluticasone nasal spray 16GM bottle NS SCH (20:00)
[2024-01-14] MEDS: nystatin 15 GM powder TP SCH (20:55)
[2024-01-15] VITALS (15 sets, daily range): BP systolic 112–182; BP diastolic 63–94; PULSE 74–110; RESP 16–35; TEMP 97–98.8; O2SAT 88–100
[2024-01-15] MEDS: acetaminophen 325mg tablet PO PRN (00:21)
[2024-01-15 07:36] LABS: PROTHROMBIN TIME 10.9 SECONDS (9.0-12.0)
[2024-01-15] MEDS: BROMFENAC SODIUM RIGHTEYE SCH (08:00)
[2024-01-15 08:15] LABS: BASOPHILS % (AUTO) 0.1 % (0-1); EOSINOPHILS % (AUTO) 0 % (0-6); HEMATOCRIT 30.7 % (35.0-45.0); HEMOGLOBIN 10.5 g/dl (12.0-16.0); LYMPHOCYTES # (AUTO) 0.5 X10'3 (1.1-4.8); LYMPHOCYTES % (AUTO) 5.7 % (21-51); MEAN CORPUSCULAR HGB CONC 34.3 g/dL (33.0-36.5); MEAN CORPUSCULAR VOLUME 84.6 FL (78-98); MEAN PLATELET VOLUME 10.2 FL (7.4-10.4); MONOCYTES # (AUTO) 0.3 X10'3 (0-0.9); MONOCYTES % (AUTO) 3.8 % (2-12); NEUTROPHILS # (AUTO) 8.2 X10'3 (1.8-7.7); NEUTROPHILS % (AUTO) 90.4 % (42-75); PLATELET COUNT 183 X10'3 (140-440); RED BLOOD COUNT 3.62 X10'6 (4.20-5.60); RED CELL DISTRIBUTION WIDTH 14.7 % (11.5-14.5); WHITE BLOOD COUNT 9.1 X10'3 (4.5-11.0)
[2024-01-15 08:16] LABS: ALANINE AMINOTRANSFERASE 17 U/L (12-78); ALBUMIN/GLOBULIN RATIO 0.8 (1.1-1.5); ALKALINE PHOSPHATASE 77 IU/L (46-116); ANION GAP 1 (8-16); ASPARTATE AMINO TRANSFERASE 19 U/L (10-37); BILIRUBIN,TOTAL 0.5 MG/DL (0.1-1.0); BLOOD UREA NITROGEN 15 MG/DL (7-18); BUN/CREATININE RATIO 16.1 (10.0-20.0); CALCIUM 9.5 MG/DL (8.5-10.1); CHLORIDE 87 MMOL/L (99-107); CREATININE 0.93 MG/DL (0.40-0.90); GLUCOSE 125 MG/DL (70-104); MAGNESIUM 2.1 MG/DL (1.5-2.4); POTASSIUM 4.5 MMOL/L (3.5-5.1); SODIUM 128 MMOL/L (135-145); TOTAL CARBON DIOXIDE 39.7 MMOL/L (24-32); TOTAL PROTEIN 6.7 G/DL (6.4-8.2); eCRCL 40 ML/MIN; eGFR 57 ML/MIN
[2024-01-15] MEDS: normal saline 1000ml 1,000 ML IV SCH (09:21)
[2024-01-15] MEDS ORDERED: CHOL1CAP16 (10:18)
[2024-01-15] MEDS ORDERED: GABA-530 PO (10:20)
[2024-01-15] MEDS ORDERED: FERR325T28 PO (10:21)
[2024-01-15] MEDS ORDERED: PANT40TA54 PO (10:22)
[2024-01-15 12:49] LABS: ABG BASE EXCESS 15.6 mmol/L (-2.0-3.0); ABG HCO3 43.7 mmol/L (21.0-28.0); ABG OXYGEN SATURATION 97.7 % (94.0-98.0); ABG PCO2 (T) 72.5 mmHg (32.0-45.0); ABG PH (T) 7.398 (7.350-7.450); ABG PO2 (T) 94.1 mmHg (83.0-108.0); ALLEN'S TEST POSITIVE; FCOHb 0.6 % (0.5-1.5); FHHb 2.3 % (0.0-5.0); FLOW 3 L/min; FMetHb 0.3 % (0.0-1.5); FO2Hb 96.8 % (94.0-98.0); MODE NASAL CANNULA; TOTAL HEMOGLOBIN 12.2 G/dl (12.0-16.0)
[2024-01-15] MEDS: gabapentin 100mg capsule PO SCH (19:08)
[2024-01-15] MEDS: hydrALAZINE 20mg/ml inj. IV PRN (21:02)
[2024-01-15] MEDS: cloNIDine 0.1 mg tablet PO ONE (22:48)
[2024-01-16] VITALS (11 sets, daily range): BP systolic 147–181; BP diastolic 77–92; PULSE 69–94; RESP 14–24; TEMP 97.6–98.5; O2SAT 93–98
[2024-01-16] MEDS: oxyCODONE/APAP 5-325mg tablet PO PRN (02:16)
[2024-01-16 07:27] LABS: INR 1.1 INR
[2024-01-16 07:39] LABS: ALANINE AMINOTRANSFERASE 16 U/L (12-78); ALBUMIN/GLOBULIN RATIO 0.9 (1.1-1.5); ALKALINE PHOSPHATASE 73 IU/L (46-116); ANION GAP -1 (8-16); ASPARTATE AMINO TRANSFERASE 19 U/L (10-37); BILIRUBIN,TOTAL 0.5 MG/DL (0.1-1.0); BLOOD UREA NITROGEN 17 MG/DL (7-18); BUN/CREATININE RATIO 23.3 (10.0-20.0); CALCIUM 9.1 MG/DL (8.5-10.1); CHLORIDE 87 MMOL/L (99-107); CREATININE 0.73 MG/DL (0.40-0.90); GLUCOSE 130 MG/DL (70-104); POTASSIUM 4.1 MMOL/L (3.5-5.1); SODIUM 126 MMOL/L (135-145); TOTAL CARBON DIOXIDE 39.7 MMOL/L (24-32); TOTAL PROTEIN 6.4 G/DL (6.4-8.2); eCRCL 51 ML/MIN; eGFR 76 ML/MIN
[2024-01-16 07:43] LABS: BASOPHILS % (AUTO) 0.1 % (0-1); EOSINOPHILS % (AUTO) 0 % (0-6); HEMATOCRIT 32.3 % (35.0-45.0); HEMOGLOBIN 10.6 g/dl (12.0-16.0); LYMPHOCYTES # (AUTO) 0.5 X10'3 (1.1-4.8); LYMPHOCYTES % (AUTO) 5.1 % (21-51); MEAN CORPUSCULAR HEMOGLOBIN 27.7 PG (27.0-31.0); MEAN CORPUSCULAR HGB CONC 32.8 g/dL (33.0-36.5); MEAN CORPUSCULAR VOLUME 84.4 FL (78-98); MEAN PLATELET VOLUME 9.7 FL (7.4-10.4); MONOCYTES # (AUTO) 0.5 X10'3 (0-0.9); MONOCYTES % (AUTO) 5.2 % (2-12); NEUTROPHILS # (AUTO) 8.5 X10'3 (1.8-7.7); NEUTROPHILS % (AUTO) 89.6 % (42-75); PLATELET COUNT 185 X10'3 (140-440); RED BLOOD COUNT 3.83 X10'6 (4.20-5.60); RED CELL DISTRIBUTION WIDTH 14.6 % (11.5-14.5); WHITE BLOOD COUNT 9.5 X10'3 (4.5-11.0)
[2024-01-16] MEDS: losartan 50mg tablet PO ONE (09:35)
[2024-01-17] MEDS ORDERED: losartan 50mg tablet PO SCH (08:00)
[2024-01-18] MEDS ORDERED: NYST30CR35 TOP (21:27)
[2024-01-18] MEDS ORDERED: ATRIN INH (21:27)
[2024-01-18] MEDS ORDERED: ALB0.5UD IH (21:27)
[2024-01-18] MEDS ORDERED: PER5325T PO (21:27)
[2024-01-18] MEDS ORDERED: VALS80TA32 PO (21:27)
[2024-01-18] MEDS ORDERED: CEFD300C3 PO (21:27)
[2024-01-18] MEDS ORDERED: DOCU100C40 PO (21:27)
[2024-01-18] MEDS ORDERED: MAG30ORA PO (21:27)
[2024-01-18] MEDS ORDERED: PRED20TA PO (21:27)
[2024-01-18] MEDS ORDERED: BUDE0.5A11 NEB (21:27)
[2024-01-18] MEDS ORDERED: ONDA-103 PO (21:27)
== END 2024-01-16 16:00 | DRG 193 ==
LOC: ER 14:12 → ED HOLD 17:22 → PCU 3S 22:32
PROVIDERS: ADMIT Family Medicine; ATTEND Family Medicine
PROC: 5A09357 Assistance with Respiratory Ventilation, Less than 24 Consecutive Hours, Continuous Positive Airway Pressure (ICD-10-PCS; principal; 2024-01-13)
PROC: 5A09357 Assistance with Respiratory Ventilation, Less than 24 Consecutive Hours, Continuous Positive Airway Pressure (ICD-10-PCS; 2024-01-14)
PROC: 5A09357 Assistance with Respiratory Ventilation, Less than 24 Consecutive Hours, Continuous Positive Airway Pressure (ICD-10-PCS; 2024-01-15)
PROC: 5A09357 Assistance with Respiratory Ventilation, Less than 24 Consecutive Hours, Continuous Positive Airway Pressure (ICD-10-PCS; 2024-01-16)
DX: J15.9 Unspecified bacterial pneumonia (principal); J96.21 Acute and chronic respiratory failure with hypoxia; J96.22 Acute and chronic respiratory failure with hypercapnia; J44.0 Chronic obstructive pulmonary disease with (acute) lower respiratory infection; Z68.43 Body mass index [BMI] 50.0-59.9, adult; J44.1 Chronic obstructive pulmonary disease with (acute) exacerbation; E87.1 Hypo-osmolality and hyponatremia; Z20.822 Contact with and (suspected) exposure to COVID-19; E78.00 Pure hypercholesterolemia, unspecified; G47.33 Obstructive sleep apnea (adult) (pediatric); I10 Essential (primary) hypertension; E87.8 Other disorders of electrolyte and fluid balance, not elsewhere classified; I48.91 Unspecified atrial fibrillation; G89.29 Other chronic pain; M54.9 Dorsalgia, unspecified; Z66 Do not resuscitate; Z79.899 Other long term (current) drug therapy; Z86.73 Personal history of transient ischemic attack (TIA), and cerebral infarction without residual deficits; Z87.11 Personal history of peptic ulcer disease; Z87.891 Personal history of nicotine dependence; Z88.2 Allergy status to sulfonamides; Z99.81 Dependence on supplemental oxygen; R25.2 Cramp and spasm; E66.01 Morbid (severe) obesity due to excess calories
CPT/HCPCS: 36415; 36600; 71045; 80053; 81001; 82803; 83605; 83690; 83735; 83880; 84145; 84484; 85018; 85025; 85379; 85610; 85730; 87040; 87081; 87811; 90732; 93005; 93306; 93970; 94640; 94660; 94760; 96365; 96375; 97110; 97116; 97162; 99285; A7015; G0378; J0360; J0696; J1650; J2270; J2405; J2919; J7030